=== PATIENT | female | born 1990 ===

== ENCOUNTER 2018-03-08 07:11 | Observation (INO) | payer OTHER ==
[2018-03-08] MEDS ORDERED: LR 1,000 ML IV ONE (07:19)
[2018-03-08] MEDS ORDERED: BUPIVACAINE/EPI 0.5% 30 ML SDV ONE (07:22)
[2018-03-08] MEDS ORDERED: MIDAZOLAM 2 MG/2 ML VIAL IVP ONE (07:47)
--- NOTE | 2018-03-08 07:47 | PDANEPAE ---
ANE Past Medical History - Cardiovascular History Hx Hypertension: No Hx Arrhythmias: No Hx Chest Pain: No Hx Coronary Artery / Peripheral Vascular Disease: No Hx CHF / Valvular Disease: No Hx Palpitations: No - Pulmonary History Hx COPD: No Hx Asthma/Reactive Airway Disease: No Hx Recent Upper Respiratory Infection: No Hx Oxygen in Use at Home: No Hx Sleep Apnea: No Sleep Apnea Screening Result - Last Documented: Negative - Neurologic History Hx Cerebrovascular Accident: No Hx Seizures: No Hx Dementia: No - Endocrine History Hx Diabetes: No - Renal History Hx Renal Disorders: Yes Renal History Comment: KIDNEY INFECTION 2017 HOSPITALIZED - Liver History Hx Hepatic Disorders: No - Neurological & Psychiatric Hx Hx Neurological and Psychiatric Disorders: Yes Neurological / Psychiatric History Comment: ADD. ANXIETY. MIGRAINES - Cancer History Hx Cancer: No - Congenital Disorder History Hx Congenital Disorders: No - GI History Hx Gastrointestinal Disorders: Yes Gastrointestinal History Comment: CONSTIPATION. INTERMITTENT REFLUX WILL USE OTC - Other Health History Other Health History: ECZEMA ON HANDS - Chronic Pain History Chronic Pain: Yes (LOWER ABDOMEN,PELVIC AREA,PRESSURE) - Surgical History Prior Surgeries: UTERINE ABLATION 05/2017 ANE Review of Systems Review of Systems: - Exercise capacity METS (RN): 4 METS ANE Patient History - Allergies Allergies/Adverse Reactions: amoxicillin Allergy (Verified 03/02/18 14:04) Rash gluten Allergy (Verified 03/02/18 14:05) Diarrhea latex Allergy (Verified 03/02/18 14:04) Rash - Home Medications Home Medications: Adderall 20 mg (*) DAILY 03/02/18 [Last Taken 03/07/18] Citalopram DAILY AT 2PM 03/02/18 [Last Taken 03/08/18 06:30] Fish Oil 1000 mg (*) DAILY 03/02/18 [Last Taken 1 Week Ago ~03/01/18] Herbals/Supplements -Info Only DAILY 03/02/18 [Last Taken 1 Week Ago ~03/01/18] Ibuprofen DAILY 03/02/18 [Last Taken 03/01/18] Zantac PRN 03/02/18 [Last Taken 03/06/18] - NPO status NPO Since - Liquids (Date): 03/07/18 NPO Since - Liquids (Time): 07:00 NPO Since - Solids (Date): 03/07/18 NPO Since - Solids (Time): 21:00 - Smoking Hx Smoking Status: Never smoked - Family Anes Hx Family Hx Anesthesia Complications: NEG ANE Labs/Vital Signs - Vital Signs Height: 152.4 cm Weight: 72.575 kg ANE Physical Exam - Airway Neck exam: FROM Mallampati Score: Class 1 Mouth exam: normal dental/mouth exam - Pulmonary Pulmonary: no respiratory distress - Cardiovascular Cardiovascular: regular rate and rhythym - ASA Status ASA Status: II ANE Anesthesia Plan Anesthesia Plan: general endotracheal anesthesia
[2018-03-08] MEDS ORDERED: PROPOFOL 200 MG/20 ML VIAL ONE (07:55)
[2018-03-08] MEDS ORDERED: RANITIDINE 50 MG/2 ML VIAL ONE (07:55)
[2018-03-08] MEDS ORDERED: METOCLOPRAMIDE 10 MG/2 ML VIAL ONE (07:55)
[2018-03-08] MEDS ORDERED: ONDANSETRON 4 MG/2 ML VIAL ONE (07:55)
[2018-03-08] MEDS ORDERED: DEXAMETHASONE 4 MG/ML VIAL ONE ×2 (07:55)
[2018-03-08] MEDS ORDERED: ROCURONIUM 50 MG/5 ML VIAL ONE (07:55)
[2018-03-08] MEDS ORDERED: LIDOCAINE 2% 100 MG/5 ML SYR ONE (07:56)
[2018-03-08] MEDS ORDERED: KETOROLAC 30 MG/1 ML SDV ONE (08:02)
[2018-03-08] MEDS ORDERED: CEFAZOLIN 2 GM/DEXTROSE/100 ML BAG IV ONE (08:13)
--- NOTE | 2018-03-08 08:14 | PDHPUP ---
History & Physical Update H&P update statement: This history and physical update is based on an assessment of the patient which was completed after admission or registration (within 24 hours), but prior to the surgery/procedure. H&P update: H&P reviewed & patient examined, no change in patient's condition since H&P completed
[2018-03-08] MEDS ORDERED: GLYCOPYRROLATE 0.2 MG/1 ML VIAL ONE ×2 (09:23)
[2018-03-08] MEDS ORDERED: NEOSTIGMINE METHYLSULFATE 5 MG/5 ML SYR ONE (09:23)
[2018-03-08] MEDS ORDERED: ceFAZolin 2 GM/DEXTROSE 100 ML IV ONE ×2 (10:00→10:24)
[2018-03-08] MEDS ORDERED: ALBUTEROL 3 ML DEYVIAL IH PRN (10:24)
[2018-03-08] MEDS ORDERED: NALOXONE HCL 0.4 MG/ML INJ IVP PRN (10:24)
[2018-03-08] MEDS ORDERED: fentaNYL 100 MCG/2 ML INJ IVP PRN (10:24)
[2018-03-08] MEDS ORDERED: MEPERIDINE 25 MG/0.5 ML AMP IVP PRN (10:24)
[2018-03-08] MEDS ORDERED: HYDROCODONE/APAP 5/325 TAB PO PRN (10:24)
[2018-03-08] MEDS ORDERED: PROMETHAZINE HCL 25 MG/ML INJ IVP PRN ×2 (10:24→13:07)
[2018-03-08] MEDS ORDERED: ONDANSETRON 4 MG/2 ML VIAL IVP PRN ×2 (10:24→13:07)
--- NOTE | 2018-03-08 10:24 | POSTANESTH ---
Post Anesthetic Evaluation Cardiovascular Status: Similar to Pre-Op Cond, Tx Over/Under Hydration Level of Consciousness/Mental Status: Mildly Sleepy, Arousable Pain Control: Adequate, Prn Tx Ordered Nausea/Vomiting Control: Adequate, Prn Tx Ordered Complications Possibly Related to Anesthesia: None Noted
--- NOTE | 2018-03-08 10:29 | POSTOPPROG ---
Post Op Note Date of Operation: 03/08/18 Surgeon: Eyal Pyle Fire Behavior Analyst: Ruchi Post Anesthesiologist: Negro Anesthesia: GET(General Endotracheal) Pre-op Diagnosis: Endometriosis Post-op Diagnosis: Same Procedure: Robotic exision of endo, bilat ureterolysis Findings: valarie Inf/Abcess present in the surg proc area at time of surgery?: No EBL: Minimal Complications: none Specimen(s): endo
[2018-03-08] MEDS ORDERED: HYDROmorphONE/DILAUDID 2 MG/ML INJ ONE (11:00)
[2018-03-08] MEDS ORDERED: fentaNYL 100 MCG/2 ML INJ ONE (11:00)
[2018-03-08] MEDS ORDERED: HYDROCODONE/APAP 5/325 TAB ONE (11:09)
[2018-03-08] MEDS: HYDROmorphONE/DILAUDID 2 MG/ML INJ IVP PRN ×3 (11:26→12:47)
--- NOTE | 2018-03-08 11:26 | GOP ---
DATE OF OPERATION: 03/08/2018 SURGEON: Eyal Pyle MD DAIRY SCIENTIST: Ruchi Post CFA. ANESTHESIA: General. PREOPERATIVE DIAGNOSIS: 1. Endometriosis. 2. Pelvic pain. 3. Dyschezia. 4. Mid cycle pelvic pain. POSTOPERATIVE DIAGNOSIS: 1. Endometriosis. 2. Pelvic pain. 3. Dyschezia. 4. Mid cycle pelvic pain. PROCEDURE PERFORMED: 1. Robotic excision of extensive endometriosis and anterior and posterior cul- de-sac, bilateral ovarian fossae. 2. Bilateral ureterolysis. 3. Excision of rectal lesion. 4. Excision of sigmoid lesion. 5. Bilateral ovariopexy. FINDINGS: SPECIMENS: 1. Pelvic peritoneum with endometriosis. 2. Rectal lesion. 1. Sigmoid lesion. 3. ESTIMATED BLOOD LOSS: Scant. DESCRIPTION OF PROCEDURE: The patient was taken to the operating room where she was identified. General anesthesia was administered and found to be adequate. She was placed in the lithotomy position and prepared and draped in normal sterile fashion. A Hulka tenaculum was placed in the uterus for manipulation. A Horn catheter was then placed. A 1 cm infraumbilical incision was made with a scalpel. The Veress needle with CO2 gas line was advanced into the peritoneal cavity. The abdomen was then insufflated with carbon dioxide gas. The 12 mm trocar followed by the laparoscope were then inserted. The upper abdomen was unremarkable. There was no endometriosis on either diaphragm or upper abdominal bowel. Two lateral ports placed in the right, 1 on the left under direct visualization. She then was placed in Trendelenburg position and the DaVinci robot docked on the left side. The instruments were then brought into the abdominal cavity under direct visualization. She was found to have multiple areas of endometriosis mostly filmy and vascular over the sigmoid colon and rectum. She had multiple lesions of endometriosis throughout the posterior cul-de-sac, bilateral pelvic sidewalls overlying both ureters as well as the anterior cul-de-sac. She had lesions on both ovaries and several on the uterine serosa. The anterior cul-de-sac peritoneum was excised. The lesions along the sigmoid and rectum were excised and fulgurated as indicated. The deeper lesions extended approximately 1/3 the depth of the muscularis. The lesions on each ovary were then treated. A bilateral ovariopexy was then performed by attaching the ovaries to the ipsilateral round ligaments near the internal inguinal rings with w-0 vicryl Rapide. A bilateral ureterolysis was required given the extensive endometriosis overlying both ureters. The peritoneum at the pelvic brims was incised. The ureters were gently dissected free and lateralized from the pelvic brim all the way down to the uterine arteries. Once this was accomplished, the entire pelvic sidewall peritoneum was completely excised. Finally the serosal surface of the cervix was completely excised. All specimens were sent to Pathology for permanent section. The pelvis was copiously irrigated with sterile saline, and hemostasis was present. The robot was then undocked. The fascia was closed with 0 Vicryl, the skin with 4-0 Monocryl and surgical adhesive. Anesthesia was reversed and the patient was taken to the PACU awake, in stable condition. COMPLICATIONS: None. DISPOSITION: Patient stable to PACU. /[id number]/MODL MTDD
[2018-03-08] MEDS ORDERED: ONDANSETRON DISINTEGRATING 4 MG TAB PO PRN (13:07)
[2018-03-08] MEDS ORDERED: OXYCODONE/APAP 5/325 TAB PO PRN (13:07)
[2018-03-08] MEDS ORDERED: HYDROmorphONE/DILAUDID 1 MG/ML INJ IVP PRN (13:07)
[2018-03-08] MEDS ORDERED: LR 1,000 ML IV SCH (13:30)
[2018-03-08] MEDS: GABAPENTIN 300 MG CAP PO SCH ×2 (15:47→20:31)
[2018-03-08] MEDS: HYDROCODONE/APAP 5/325 TAB PO PRN ×2 (15:47→20:31)
[2018-03-08] MEDS: SIMETHICONE 80 MG TAB CHEW PO SCH ×2 (20:30→20:39)
[2018-03-08] MEDS: DOCUSATE SODIUM 100 MG CAP PO SCH (20:30)
[2018-03-08] MEDS: KETOROLAC 30 MG/1 ML SDV IVP SCH (20:31)
[2018-03-09] MEDS: KETOROLAC 30 MG/1 ML SDV IVP SCH ×2 (01:43→06:14)
[2018-03-09] MEDS: GABAPENTIN 300 MG CAP PO SCH (09:53)
[2018-03-09] MEDS: SIMETHICONE 80 MG TAB CHEW PO SCH (09:53)
[2018-03-09] MEDS: DOCUSATE SODIUM 100 MG CAP PO SCH (09:53)
[2018-03-09] MEDS: HYDROCODONE/APAP 5/325 TAB PO PRN ×2 (09:57→10:28)
[2018-03-09 10:59] VITALS: BP 101/62
== END 2018-03-09 12:32 | disposition home or self-care (01) ==
LOC: FSGY 07:11 → F3E 13:07 → FOB 14:15
PROVIDERS: ADMIT Obstetrics & Gynecology; ATTEND Obstetrics & Gynecology
DX: N80.3 Endometriosis of pelvic peritoneum (principal); R10.2 Pelvic and perineal pain; K59.00 Constipation, unspecified; F41.8 Other specified anxiety disorders; Z87.442 Personal history of urinary calculi
CPT/HCPCS: 58660; G0378; J0690; J1100; J1170; J1885; J2001; J2250; J2270; J2405; J2704; J2710; J2765; J2780; J3010